=== PATIENT | male | born 2000 | race Caucasian/White ===

== ENCOUNTER 2022-09-08 19:52 | Emergency (ER) | payer OTHER ==
[~2022-09-08] VITALS: Ht 177.8 cm; Wt 82.0 kg
[2022-09-09] MEDS ORDERED: LIDOCAINE HCL/EPINEPHRINE 1%-EPI 1:100,000 50 ML VIAL INFIL ONE (01:45)
[2022-09-09] MEDS ORDERED: HYDROCODONE/ACETAMINOPHEN 5/325MG TABLET PO ONE (01:45)
[2022-09-09 04:39] VITALS: BP 119/65
== END 2022-09-09 05:19 | disposition home or self-care (01) ==
LOC: ER 19:52
DX: S01.81XA Laceration without foreign body of other part of head, initial encounter (principal); V89.3XXA Person injured in unspecified nonmotor-vehicle accident, traffic, initial encounter; Y93.89 Activity, other specified; Y92.89 Other specified places as the place of occurrence of the external cause; Y99.8 Other external cause status
CPT/HCPCS: 12013; 70450; 70486; 73610; 99284; Z7610